=== PATIENT | female | born 1970 | race Caucasian/White ===

== ENCOUNTER 2021-08-01 05:59 | Emergency (ER) | payer BC ==
[2021-08-01] MEDS ORDERED: Sodium Chloride 0.9% 2.5 ML Syringe FLUSH PRN (06:32)
[2021-08-01] MEDS ORDERED: Sodium Chloride 0.9% 10 ML Syringe FLUSH PRN (06:32)
[2021-08-01] MEDS ORDERED: Sodium Chloride 0.9% 1,000 ML IV ONE (07:22)
[2021-08-01 07:37] LABS: BLOOD UREA NITROGEN,BUN 16 mg/dL (7.0-18.0); CARBON DIOXIDE,CO2 25.4 mmol/L (21.0-32.0); CHLORIDE,CL 105 mmol/L (98-107); GLUCOSE RANDOM 119 mg/dL (74-106); SODIUM,NA 141 mmol/L (136-145)
== END 2021-08-01 08:15 | disposition home or self-care (01) ==
LOC: MW.ED 05:59
DX: L03.211 Cellulitis of face (principal); L02.01 Cutaneous abscess of face
CPT/HCPCS: 36415; 71045; 71045-26; 80053; 84439; 84443; 84481; 84484; 85025; 93005; 99284-25

== ENCOUNTER 2021-08-17 12:46 | Emergency (ER) | payer BC, OTHER ==
[2021-08-17] MEDS ORDERED: Sodium Chloride 0.9% 2.5 ML Syringe FLUSH PRN (13:21)
[2021-08-17] MEDS ORDERED: Sodium Chloride 0.9% 10 ML Syringe FLUSH PRN (13:21)
[2021-08-17 14:18] LABS: BLOOD UREA NITROGEN,BUN 11 mg/dL (7.0-18.0); CARBON DIOXIDE,CO2 27.1 mmol/L (21.0-32.0); CHLORIDE,CL 105 mmol/L (98-107); GLUCOSE RANDOM 98 mg/dL (74-106); POTASSIUM,K 4.3 mmol/L (3.5-5.1); SODIUM,NA 143 mmol/L (136-145)
[2021-08-17] MEDS ORDERED: Iopamidol 755 MG/ML 500 ML Multipack Bottle IVPUSH ONE (17:27)
== END 2021-08-17 16:39 | disposition home or self-care (01) ==
LOC: MW.ED 12:46
DX: R20.2 Paresthesia of skin (principal); Z88.2 Allergy status to sulfonamides; Z72.0 Tobacco use
CPT/HCPCS: 36415; 70450; 70491; 80053; 83605; 84443; 84484; 85025; 99284; J3490; Q9967; 99283

== ENCOUNTER 2021-10-09 02:37 | Emergency (ER) | payer BC, OTHER ==
[2021-10-09 03:52] LABS: BLOOD UREA NITROGEN,BUN 16 mg/dL (7.0-18.0); CARBON DIOXIDE,CO2 28.1 mmol/L (21.0-32.0); CHLORIDE,CL 103 mmol/L (98-107); GLUCOSE RANDOM 105 mg/dL (74-106); POTASSIUM,K 3.9 mmol/L (3.5-5.1); SODIUM,NA 139 mmol/L (136-145)
== END 2021-10-09 04:21 | disposition home or self-care (01) ==
LOC: MW.ED 02:37
DX: R42 Dizziness and giddiness (principal); R25.1 Tremor, unspecified; Z91.048 Other nonmedicinal substance allergy status
CPT/HCPCS: 36415; 80053; 80307; 81001; 83735; 84443; 85025; 93005; 93010; 99283; 99284-25